=== PATIENT | male | born 1955 | race Caucasian/White ===

== ENCOUNTER 2018-01-07 09:09 | Day surgery (SDC) | payer OTHER, MEDICARE ==
[~2018-01-07] VITALS: Ht 180.3 cm; Wt 142.8 kg
[~2018-01-07 09:09] MED LIST: ARTIFICIAL TEAR15 M6 BOTH EYES; CYMBALTA60 MG PO; LASIX40 MG PO; LIPITOR80 MG PO; LO-DOSE ASPIRIN81 M1 PO; MOBIC7.5 MG PO; NEURONTIN300 MG PO; NITROSTAT0.4 MG SL; PRINIVIL20 MG PO; PROTONIX40 MG PO
[2018-01-07 09:37] LABS: HEMATOCRIT 44.5 % (38.0-50.0); HEMOGLOBIN 14.8 G/DL (12.5-16.6); MCH 29.4 PG (29.0-34.0); MCHC 33.3 G/DL (30.0-36.0); MCV 88.5 FL (86-99); RBC DIS.WIDTH-CV 13.1 % (11.8-14.6); RED BLOOD COUNT 5.03 M/uL (4.00-5.50); WHITE BLOOD COUNT 8.5 K/uL (4.1-10.2)
[2018-01-07 10:04] LABS: PLAT.SUFFICIENCY ADEQUATE; PLATELET COUNT 192 K/uL (156-360)
[2018-01-07 10:11] VITALS: BP 133/78
[2018-01-07 10:30] LABS: ALBUMIN 4.4 G/DL (3.2-4.8); ALKALINE PHOSPHATASE 94 IU/L (3-129); ALT (GPT) 36 IU/L (3-49); AST (GOT) 23 IU/L (2-34); CHLORIDE 103 MEQ/L (99-109); CREATININE 1.1 MG/DL (0.6-1.3); GFR ESTIMATE (CALCULATED) > 59 mL/min/ (58.99-99999); GLUCOSE 136 mg/dL (70-99); POTASSIUM 4.2 MEQ/L (3.7-5.4); SODIUM 141 MEQ/L (136-147); TOTAL BILIRUBIN 0.6 MG/DL (0.0-1.0); TOTAL PROTEIN 7.4 G/DL (6.4-8.3); UREA NITROGEN (BUN) 21 mg/dL (9-23)
[2018-01-07 13:31] VITALS: BP 120/67
[2018-01-07 13:51] VITALS: BP 120/67
== END 2018-01-07 14:00 | disposition home or self-care (01) ==
LOC: SDC 09:09
PROVIDERS: Ophthalmology
DX: H35.371 Puckering of macula, right eye (principal); H43.11 Vitreous hemorrhage, right eye; H34.8112 Central retinal vein occlusion, right eye, stable; E78.00 Pure hypercholesterolemia, unspecified; F41.9 Anxiety disorder, unspecified; K21.9 Gastro-esophageal reflux disease without esophagitis; Z87.891 Personal history of nicotine dependence; Z79.82 Long term (current) use of aspirin
CPT/HCPCS: 80053; 85027; 87641; J0690; J0713; J2795; J3010; J3300